=== PATIENT | female | born 1955 | race Caucasian/White ===

== ENCOUNTER 2019-07-08 14:23 | Outpatient (CLI) | payer MEDICARE, SELFPAY ==
[2019-07-08 15:06] LABS: Abs Immature Grans 0.01 k/cumm (0.0-0.09); Absolute Basophil Count 0.07 k/cumm (0.0-0.2); Absolute Eosinophil Count 0.03 k/cumm (0.0-0.7); Absolute Lymphocyte Count 1.84 k/cumm (1.2-3.4); Absolute Monocyte Count 0.69 k/cumm (0.11-0.7); Absolute Neutrophil Count 3.43 k/cumm (1.2-6.7); Basophils % 1.2; Eosinophils % 0.5; HCT 40.9 % (36.0-46.0); HGB 14.5 g/dL (12.0-15.5); Immature Grans % 0.2; Lymphocytes % 30.3; Mean Corp. HGB Concentration 35.5 g/dL (32.0-36.0); Mean Corpuscular Hemoglobin 28.6 pg (27.0-33.0); Mean Corpuscular Volume 80.7 fL (80-95); Mean Platelet Volume 9.8 fL (8.0-11.0); Monocytes % 11.4; Neutrophils % 56.4; Platelet Count 434 x1000/uL (130-400); RBC 5.07 m/cumm (4.00-5.20); RBC Distribution Width 15.6 % (11.7-14.6); White Blood Cell Count 6.07 k/cumm (4.4-10.8)
[2019-07-08 15:15] LABS: Ammonia 19 umol/L (11-32)
[2019-07-08 15:20] LABS: INR 1.1 (0.9-1.1); PTT Activated 29.2 sec (21.0-31.4)
[2019-07-08 15:52] LABS: AST 787 U/L (15-37); Albumin 3.2 g/dL (3.4-5.0); Alkaline Phosphatase 215 U/L (46-116); BUN 9 mg/dL (7-18); CREATININE 0.85 mg/dL (0.55-1.02); Calcium 9.2 mg/dL (8.5-10.1); Chloride 100 mmol/L (98-107); Glucose 123 mg/dL (70-100); Potassium 4.2 mmol/L (3.5-5.1); Sodium 137 mmol/L (136-145); Total Protein 7.6 g/dL (6.4-8.2)
[2019-07-08 16:01] LABS: Bilirubin, Total 17.2 mg/dL (0.2-1.0)
[2019-07-08 16:18] LABS: ALT 2379 U/L (14-59)
[2019-07-09 12:01] LABS: Lipase 93 U/L (73-393)
[2019-07-09 12:28] LABS: Hepatitis A Antibody IgM Positive (NEGAT); Hepatitis B Core Antibody Negative (NEGAT); Hepatitis B surface Ag Negative (NEGAT); Hepatitis C Ab w Rflx HCV PCR Negative (NEGAT)
== END 2019-07-08 14:43 ==
PROVIDERS: PCP Nurse Practitioner Family; Visit Provider Nurse Practitioner Family
DX: R42 Dizziness and giddiness (principal); R06.02 Shortness of breath; R17 Unspecified jaundice; Z11.59 Encounter for screening for other viral diseases
CPT/HCPCS: 36415; 80053; 83690; 86704; 86709; 86803; 87340; 82140; 84443; 85025; 85610; 85730

== ENCOUNTER 2019-07-08 14:49 | Outpatient (REF) | payer MEDICARE, SELFPAY | END 2019-07-08 15:09 | LOC: NCHCN 14:49 | PROVIDERS: PCP Nurse Practitioner Family; Visit Provider Nurse Practitioner Family | DX: R82.79 Other abnormal findings on microbiological examination of urine (principal); R17 Unspecified jaundice | CPT/HCPCS: 87077; 87086; 87186 ==

== ENCOUNTER 2019-07-10 00:34 | Outpatient (CLI) | payer MEDICARE, SELFPAY ==
--- NOTE | 2019-07-10 09:00 | DI.US_ITS ---
EXAM: US ABDOMEN CLINICAL HISTORY: JAUNDICE, R17, SHORTNESS OF BREATH, R06.02,DIZZINESS, R42, hepatitis A TECHNIQUE: Ultrasound performed using standard protocol. COMPARISON: No exams were available for comparison FINDINGS: The aorta and vena cava are normal. The liver is normal. The portal vein is intact. There is no ev idence of a Workman's sign. The gallbladder wall is thickened and edematous measuring up to 8.3 mm. N o stones are seen. There is no evidence of biliary dilatation. The pancreas is echogenic and has a lumpy texture. The spleen is normal. The kidneys are normal. There is no evidence of abdominal free fluid. IMPRESSION: An edematous and thickened gallbladder wall is identified measuring up to 8.3 mm in diameter. There a re no stones or evidence of dilatation. No pericholecystic fluid is identified. The liver and spleen appear normal.
== END 2019-07-10 00:54 ==
PROVIDERS: PCP Nurse Practitioner Family; Visit Provider Nurse Practitioner Family
DX: R17 Unspecified jaundice (principal); K82.8 Other specified diseases of gallbladder; R06.02 Shortness of breath; R42 Dizziness and giddiness; B15.9 Hepatitis A without hepatic coma
CPT/HCPCS: 36415; 76700; 82728

== ENCOUNTER 2019-08-08 02:17 | Outpatient (CLI) | payer MEDICARE, SELFPAY ==
--- NOTE | 2019-08-08 07:56 | DI.MAMMO_ITS ---
EXAM: MG MAMMO SCREENING CLINICAL HISTORY: SCREENING, TECHNIQUE: Bilateral full field digital CC and MLO mammographic images were obtained with 3D tomosyn thesis and utilizing computer aided detection (CAD). COMPARISON: Available for comparison. FINDINGS: Masses/Architectural Distortion: None seen. Microcalcifications: No suspicious pleomorphic-type are seen. Skin Thickening/Nipple Retraction: None. IMPRESSION: 1. No significant interval change with no specific features of malignancy noted. 2. Unless there is more urgent need, screening mammography is recommended, as per [employer] guidelines. ACR BI-RAD Category- 1 Negative Breast Density - Category B - Scattered areas of fibroglandular density A negative radiographic report should not delay biopsy if a dominant or clinically suspicious mass is present. Up to ten percent of cancers are not identified on mammography. A negative report may reinforce clinical impression. Adenosis and dense breasts may obscure an underlying neoplasm. False positive reports average 6 to 10%. Patient will receive a letter notifying them of these results.
== END 2019-08-08 02:37 ==
PROVIDERS: PCP Nurse Practitioner Family; Visit Provider Nurse Practitioner Family
DX: Z12.31 Encounter for screening mammogram for malignant neoplasm of breast (principal)
CPT/HCPCS: 77063; 77067

== ENCOUNTER 2019-08-08 10:46 | Outpatient (REF) | payer MEDICARE, SELFPAY ==
[2019-08-08 22:11] LABS: ALT 685 U/L (14-59); AST 341 U/L (15-37); Albumin 3.9 g/dL (3.4-5.0); Alkaline Phosphatase 126 U/L (46-116); BUN 17 mg/dL (7-18); Bilirubin, Total 1.2 mg/dL (0.2-1.0); CREATININE 0.74 mg/dL (0.55-1.02); Calcium 9.3 mg/dL (8.5-10.1); Chloride 104 mmol/L (98-107); Glucose 96 mg/dL (74-106); Potassium 4.5 mmol/L (3.5-5.1); Sodium 139 mmol/L (136-145); Total Protein 8.2 g/dL (6.4-8.2)
== END 2019-08-08 11:06 ==
LOC: NCHCN 10:46
PROVIDERS: PCP Nurse Practitioner Family; Visit Provider Nurse Practitioner Family
DX: B15.9 Hepatitis A without hepatic coma (principal)
CPT/HCPCS: 80053

== ENCOUNTER 2021-04-09 07:26 | Day surgery (SDC) | payer MEDICARE, MEDICAID, SELFPAY ==
[2021-04-09 07:42] VITALS: BP 172/84; PULSE 69; RESP 16; TEMP 36.3; O2SAT 99
[2021-04-09] MEDS: Tropicam./Phenyleph. (1/2.5%) 5 ML BTL OD ×3 (07:46→07:59)
--- NOTE | 2021-04-09 08:47 | ANES.PREOP_ITS ---
General Info Date of Service Date Performed: 04/09/21 Height: 5 ft 2 in Weight: 80.8 kg Body Mass Index (BMI): 32.5 Surgical Procedure: Operation Date: 04/09/21 09:40 Proposed Procedures Side Surgeon p Cataract Extraction with IOL Implant Right Marshall Ballesteros MD Meds Allergies and Home Medications Allergies Allergy/AdvReac Type Severity Reaction Status Date / Time Sulfa (Sulfonamide AdvReac Intermediate Pt.states Unverified 04/09/21 07:59 Antibiotics) heart races Home Medication Medication Instructions Recorded diphenhydramine HCl 25 mg PO DAILY PRN 04/07/21 Current Visit Medications: Current Medications Generic Name Dose Route Start Last Admin Trade Name Freq PRN Reason Stop Dose Admin Acetaminophen 1,000 mg 04/09/21 06:00 Acetaminophen 500 Mg Tab PO Q4H PRN PRN Miscellaneous Medication 0 ml 04/09/21 06:00 Prednisolone 1%, Moxifloxacin 0.5%, Nepafenac 0.1% 5ml Btl OD DIRECTED DUY Miscellaneous Medication 0 ml 04/09/21 06:00 04/09/21 07:59 Tropicam./Phenyleph. (1/2.5%) 5 Ml Btl OD 1 drp DIRECTED DUY Administration Tetracaine HCl 0 ml 04/09/21 06:00 Tetracaine 0.5% 4 Ml Btl OD DIRECTED DUY PFSH Active Problems Active Problems: Problem Status Onset Code Posterior subcapsular age-related cataract, right eye H25.041 Cortical cataract of right eye H26.9 Nuclear sclerotic cataract of right eye H25.11 Medical History Medical History Cataract Dizziness Hepatitis A Jaundice SOB (shortness of breath) Ulnar neuropathy Vaginal dryness Tobacco Smoking/Tobacco Use Status: Never Alcohol Alcohol Intake: never Substance Use Substance use type: does not use Vital Signs and Lab Results Vital Signs Most Recent Vital Signs in EMR: Most Recent Vital Signs Temp Pulse Resp BP Pulse Ox 36.3 C L 69 16 172/84 H 99 04/09/21 07:42 04/09/21 07:42 04/09/21 07:42 04/09/21 07:42 04/09/21 07:42 Lab Results Blood Type / Crossmatch: No Data to Display Complete Blood Count: No Data to Display Complete Metabolic Panel: No Data to Display Liver Function Panel: No Data to Display Coagulation Panel: No Data to Display Cardiac Panel: No Data to Display Arterial Blood Gas: No Data to Display Venous Blood Gas: No Data to Display Pancreas Panel: No Data to Display Thyroid Panel: No Data to Display Infectious Disease: No Data to Display Blood Cultures: No Data to Display Toxicology Panel: 2 No Data to Display Anesthesia Assessment and Plan Anesthesia History Personal History: No History of General Anesthesia Family History: Other (Mother had Palpitations) Exercise Tolerance Exercise Tolerance: Metabolic Equivalents>4 Pertinent Negatives Pertinent Negatives: No Symptoms of GERD, No Major Cardiovascular Symptoms or Complaints, No Major Pulmonary Symptoms or Complaints and No History of CVA/TIA Cardiac & Pulmonary Exam Cardiac Exam: Normal S1/S2 Heart Sounds Pulmonary Exam: Clear Bilateral Breath Sounds Airway Exam Known Difficult Airway: No Mallampati Class: 1 Mouth Opening: Normal (> 3cm) Thyromental Distance: Greater than 3 cm Neck Range of Motion: Full ROM Neck Circumference: Normal Teeth Condition: Normal Dentition ASA Classification ASA Score: ASA 2 Emergency Case?: No NPO Status NPO Status: NPO Clears >2 hours, Solids >8 hours Anesthesia Plan Resuscitation Status: Full Code Anesthesia Technique: MAC Anesthesia Airway Planned: Natural Airway Monitors Used: Standard Monitors
[2021-04-09 08:49] VITALS: BMI 32.5
[2021-04-09] MEDS: Balanced Salt Soln.-PLUS 500 ML BAG (09:12)
[2021-04-09] MEDS: Tetracaine 0.5% 4 ML BTL OD (09:12)
[2021-04-09] MEDS: Lidocaine 1% Pres-Free 5 ML VIAL (09:13)
[2021-04-09] MEDS: Duovisc Viscoelastic System EACH 1 EACH (09:13)
[2021-04-09] MEDS: Lidocaine 2% Jelly 6 ML SYR (09:14)
[2021-04-09] MEDS: Povidone-Iodine Ophth 30 ML BTL (09:15)
[2021-04-09 09:36] VITALS: BP 138/77; PULSE 63; RESP 16; TEMP 36.7; O2SAT 97
--- NOTE | 2021-04-09 09:50 | W.PM.DSUDISC ---
Discharge Plan Disposition Patient Disposition: HOME Condition: Good Discharge Details Attending Provider: Marshall Ballesteros Primary Care Provider: Sofi Berman Home Meds and New Rx's Prescriptions: No Action diphenhydramine HCl 25 mg Tablet 25 mg PO DAILY PRNRF: 0 Discharge Instructions Stand Alone Forms: Post-op Topical Cataract, Idris Esquivel (DSU) Discharge Orders Discharge Orders: Discharge Order (Routine); Ordered 04/09/21 Ordered By: Marshall Ballesteros DS: Diagnosis Discharge Diagnosis (1) Posterior subcapsular age-related cataract, right eye: Status: Resolved (2) Cortical cataract of right eye: Status: Resolved (3) Nuclear sclerotic cataract of right eye: Status: Resolved
--- NOTE | 2021-04-09 09:51 | W.PM.OP ---
Date of service: 04/09/21 Time of Service: 09:52 Operative Note Operative Note DATE OF PROCEDURE: 04/09/21 PRE-OP DIAGNOSIS: Nuclear/cortical/posterior subcapsular cataract, right eye POST-OP DIAGNOSIS: same PROCEDURE: Cataract extraction using phacoemulsification with intraocular lens implant, right eye SURGEON: Marshall Ballesteros ANESTHESIA TYPE: Local By Surgeon and MAC Refer to Anesthesia Record ESTIMATED BLOOD LOSS: 0 PATHOLOGY: none sent COMPLICATIONS: None Patient was transported to: same day Patient's condition: stable Implants: Jeremi & Jeremi/HUGO Tecnis [id number] Indications: Progressive visual loss due to cataract, right eye Procedure Description: CATARACT SURGERY OPERATIVE REPORT PREOPERATIVE DIAGNOSIS: 1. Nuclear/cortical/posterior subcapsular cataract, right eye POSTOPERATIVE DIAGNOSIS: Same OPERATION: 1. Cataract extraction using phacoemulsification with posterior chamber intraocular lens implant, right eye. IOL: IOL Coding Technician/Model: Jeremi [employer] Jeremi / HUGO Tecnis [id number] IOL Power: + 13.5 diopters IOL Serial Number: [id number] Optic Diameter: 6.0mm Haptic/Overall Diameter: 13.0mm PHACO INFO: Ovidio Previstarurion Vision System with OZil and Active Fluidics Cumulative Dispersed Energy (CDE): 17.74 seconds SURGEON: Marshall Ballesteros MD, MIR ANESTHESIA: Monitored Anesthesia Care (MAC), with local sub-tenon's anesthetic infiltration COMPLICATIONS: None SPECIMENS: None INDICATIONS FOR PROCEDURE: The patient is a 65-year-old lady with history of myopia who has developed a significant nuclear/cortical/posterior subcapsular cataract in the right eye. The option of cataract surgery was offered to the patient and she felt she was symptomatic enough that she wished to proceed. PROCEDURE: The correct surgical eye was identified and marked as the right eye and the pupil was dilated in the preoperative area using mydriatics and cycloplegics. The dilated pupil size was 7.0 mm. She elected to proceed without oral sedation. The patient was brought to the operating room where cardiopulmonary monitoring was instituted and surgical time-out was performed, confirming the correct operative eye and IOL power. Topical anesthesia was administered and ophthalmic povidone-iodine 5% was instilled into the conjunctival fornices. Lidocaine gel was applied to the cornea and the nneka-ocular area was prepped with Betadine 10% solution and draped in the usual sterile fashion for intraocular surgery, including an aperture drape. A Tegaderm transparent film dressing was cut in half and used to cover the lashes and lid margins. Care was taken to sequester the lashes and lid margins under the Tegaderm dressing. A lid speculum was placed between the lids of the operative eye and the Carole-Shimon operating microscope was maneuvered into position. Magali scissors were then used to make a conjunctival buttonhole approximately 6mm posterior to the limbus in the inferonasal quadrant. Blunt dissection was carried out to expose bare sclera, and a blunt-tipped sub-tenon?s anesthesia cannula was introduced and passed posteriorly along the globe where non-preserved plain lidocaine was injected into posterior sub-Tenon?s space. A sideport knife was used to make a paracentesis port inferotemporally. Intraocular phenylephrine/lidocaine was injected into the anterior chamber. The anterior chamber was filled with viscoelastic. A 2.4mm keratome knife was used to create a half-thickness groove at the limbus and then to construct a three-plane near-clear corneal tunnel extending 2.0mm into clear cornea superiortemporally. A flap was raised on the anterior capsule and capsulorhexis forceps were used to complete a continuous curvilinear capsulorhexis of 5.0 mm. The anterior chamber was quite deep with a thin capsule. Balanced salt solution was then used to perform cortical cleaving hydrodissection and nuclear hydrodelineation until the lens could be freely rotated within the capsular bag. The lens nucleus was then disassembled and removed within the capsular bag and iris plane using phacoemulsification. Residual cortical material was removed using the I/A handpiece. The posterior capsule was carefully polished to remove as much residual lens epithelial cells as safely possible. The capsular bag was then inflated and the anterior chamber deepened with viscoelastic. The lens implant described above was inserted into the capsular bag using the HUGO [place] Ira Injector. A Kuglen hook was used to dial the IOL into position. Residual viscoelastic was then removed first from posterior to the IOL, then from the anterior chamber using the I/A handpiece. The lens implant was noted to center nicely within the capsular bag. The incisions were stromally hydrated, and the anterior chamber was reformed using BSS. Then 0.5cc of moxifloxacin 1.0mg/ml were injected into the capsular bag and anterior chamber. The incisions were checked with a Weck spear and found to be secure. Several drops of ophthalmic povidone-iodine 5% were then applied to the eye followed by two drops of Imprimis combination prednisolone/moxifloxacin/nepafenac solution. The drapes were removed and a clear plastic protective eye shield was placed over the eye. The patient was then returned to Same Day Surgery in stable condition.
--- NOTE | 2021-04-09 14:33 | W.ANESPOSTOP ---
Postoperative Evaluation Date, Time and Location Date Performed: 04/09/21 Time Performed: 14:33 Patient Location: Day Surgery Unit Vital Signs Most Recent Imported Vital Signs: Most Recent Vital Signs Temp Pulse Resp BP Pulse Ox 36.7 C 63 16 138/77 97 04/09/21 09:36 04/09/21 09:36 04/09/21 09:36 04/09/21 09:36 04/09/21 09:36 Most Recent Manually Entered Vital Signs: Adult Blood Pressure: 148/72 Heart Rate: 66 Respirations: 12 Oxygen Saturation (%): 99 Temperature (C): 36.4 C Pain Score (0-10 Scale): 0 Pain Score Most Recent Pain Score: Most Recent Pain Score Pain Level 0 04/09/21 09:36 Assessment Mental Status: Awake (Alert & Oriented to Patient Baseline) Airway and Respiratory Function: Patent airway with normal (patient baseline) respiratory exam Cardiovascular Function: Hemodynamically Stable Hydration Status: Adequately Hydrated Nausea & Vomiting: No Nausea or Vomiting Pain: Pt. Denies Any Pain Peripheral Nerve Block: Patient did not receive a nerve block
[2021-04-09 14:35] VITALS: BP 148/72; PULSE 66; RESP 12; TEMPC 36.4; O2SAT 99
== END 2021-04-09 09:50 | disposition home or self-care (01) ==
PROVIDERS: PCP Nurse Practitioner Family; Visit Provider Ophthalmology
PROC: (CPT 66984; principal; 2021-04-09 09:30)
DX: H25.041 Posterior subcapsular polar age-related cataract, right eye (principal)
CPT/HCPCS: 66984; V2632

== ENCOUNTER → 2023-08-16 02:54 | Outpatient (CLI) | payer MEDICARE, MEDICAID, SELFPAY ==
--- NOTE | 2023-08-16 | DI.DEXA_ITS ---
Exam(s) XR DEXA BONE DENSITY W/WO BECKY EXAM: XR DEXA BONE DENSITY W/WO BECKY CLINICAL HISTORY: SCREENING FOR OSTEOPOROSIS IN POSTMENOPAUSAL WOMAN,Z78.0 TECHNIQUE: COMPARISON: No exams were available for comparison FINDINGS: Lateral Spine Image: Unremarkable. No compression deformities identified. Left hip: Total T-Score: -1.3 Total Z-Score: 0.2 T- and Z-scores: Total findings are consistent with osteopenia. There is evidence of osteoporosis in the femoral neck with a T-score of -2.5. Lumbar Spine: Total T-Score: -0.7 Total Z-Score: 1.3 T- and Z-scores: Within normal limits. IMPRESSION: Osteoporosis seen in the femoral neck.
--- NOTE | 2023-08-16 14:05 | DI.MAMMO_ITS ---
Exam(s) MAMMO SCREENING EXAM: MAMMO SCREENING CLINICAL HISTORY: SCREENING, Z12.31 TECHNIQUE: Bilateral full field digital CC and MLO mammographic images were obtained with 3D tomosyn thesis and utilizing computer aided detection (CAD). COMPARISON: Available for comparison. FINDINGS: Masses/Architectural Distortion: None seen. Microcalcifications: No suspicious pleomorphic-type are seen. Skin Thickening/Nipple Retraction: None. IMPRESSION: 1. No significant interval change with no specific features of malignancy noted. 2. Unless there is more urgent need, screening mammography is recommended, as per [employer] guidelines. BI-RADS Category 1 - Negative Breast Density - Category B - Scattered areas of fibroglandular density Breast density category C or D implies that the patient has dense breast tissue. Dense breast tissue is very common and is not abnormal but dense breast tissue can make it harder to find cancer on a ma mmogram. Also, dense breast tissue may increase their breast cancer risk. This information about the result of the mammogram report was provided to the patient to raise their awareness. Use this report when you speak with the patient about their risks for breast cancer, which includes their family hist ory. At that time, you may recommend for more screening tests (Ultrasound or MRI) as they might be us eful based on their risk. A negative radiographic report should not delay biopsy if a dominant or clinically suspicious mass is present. Up to ten percent of cancers are not identified on mammography. A negative report may reinforce clinical impression. Adenosis and dense breasts may obscure an underlying neoplasm. False positive reports average 6 to 10%. Patient will receive a letter notifying them of these results.
== END ==
PROVIDERS: PCP Nurse Practitioner Family; Visit Provider Nurse Practitioner Family
DX: Z78.0 Asymptomatic menopausal state (principal); Z12.31 Encounter for screening mammogram for malignant neoplasm of breast; Z13.820 Encounter for screening for osteoporosis; M81.0 Age-related osteoporosis without current pathological fracture
CPT/HCPCS: 77063; 77067; 77080

== ENCOUNTER → 2024-07-18 08:23 | Outpatient (BNVA) | payer MEDICARE, MEDICAID, SELFPAY | PROVIDERS: PCP Nurse Practitioner Family; Referring Provider Nurse Practitioner Family; Visit Provider Physical Therapy Assistant | DX: Z12.11 Encounter for screening for malignant neoplasm of colon (principal); R19.5 Other fecal abnormalities ==

== ENCOUNTER 2024-08-02 09:59 | Day surgery (SDC) | payer MEDICARE, SELFPAY ==
--- NOTE | 2024-08-01 18:41 | W.PM.DSUDISC ---
Date of service: 08/02/24 Time of Service: 11:48 Discharge Plan Disposition Patient Disposition: Home Condition: Good Discharge Details Reason For Visit: screening colonsocopy Attending Provider: Chad Donahue Primary Care Provider: Sofi Berman Home Meds and New Rx's Prescriptions: Continued epinephrine 0.3 mg/0.3 mL auto-injector 0.3 mg IM ONCE Rx Instructions: as a single dose; may repeat once diphenhydramine HCl 25 mg Tablet 25 mg PO DAILY PRN Discontinued bisacodyl [Dulcolax (bisacodyl)] 5 mg tablet,delayed release (DR/EC) 5 mg PO ONCE Qty: 4 0RF Rx Instructions: Take per colonoscopy instructions provided by ordering providers office polyethylene glycol 3350 17 gram/dose powder 17 g PO ONCE Qty: 238 0RF Rx Instructions: Take per colonoscopy instructions provided by ordering providers office Discharge Instructions Instructions: Colon polyps, Diverticulosis Additional Instructions: Mónica, is a pleasure meeting you today, and I hope you are comfortable during the colonoscopy. Everything went very smoothly. I did find and removed 2 polyps today. 1 of these is medium sized, and the other was small. To the naked eye, there are no worrisome features, but I will send these off for testing since polyps, and different varieties, and that information is used to guide the timing of the next colonoscopy. Incidentally, he also have quite a bit of diverticulosis. Diverticula are weak spots in the muscular part of the colon wall. These typically accumulate as we get older. This causes the inside lining to pooch or pocket outwards. The individual pockets are called diverticula, and the condition of having them is known as diverticulosis. Sometimes patients develop symptoms, which is typically experienced as sharp pain on the left lower side of the abdomen. Patients are usually quite sick with this and is often times treated with antibiotics, during those flareups, we refer to it as diverticulitis. Hopefully years will never bother you. I think incorporating more dietary fiber, and focusing on staying well-hydrated and avoiding symptoms of constipation are probably the best way to take care of this. Have attached a little bit of information here about diverticulosis as well as colorectal polyps. As I mentioned, once the office has the results from the polyp report, we will be in touch with other recommendations. 1. If tolerated, consume a soft, low fiber diet for 1-2 days. 2[address] Do not drive, drink alcohol, operate machinery, make critical decisions, or do activities that require coordination or balance for 24 hours. 3. Because air was put into your colon during the procedure, expelling air from your rectum (passing gas or farting) is normal. 4. You may not have a bowel movement for 1-3 days because of the colonoscopy prep. This is normal. 5. Go directly to the emergency room if you notice any of the following: Develop chills (warm to touch), or if you have a thermometer and your temperature is above 101 Difficulty breathing or difficultly swallowing Persistent vomiting Severe abdominal pain, other than gas cramps Severe chest pain Black, tarry stools Any bleeding ? exceeding one tablespoon 6. Call your physician if the site where your intravenous was started becomes red, swollen, painful, and warm to touch. 7. Your physician has reviewed your pre-procedure medications. Please continue to take those medications as previously ordered. You will be given specific information/education regarding any changes to your medications before leaving. Stand Alone Forms: Anesthesia Discharge Inst., Idris Esquivel (DSU) Activity:: Activity as Tolerated Diet:: As Tolerated Discharge Orders Discharge Orders: Discharge Order (Routine); Ordered 08/01/24 Ordered By: Chad Donahue DS: Diagnosis Discharge Diagnosis (1) Encounter for screening colonoscopy: Status: Acute Asessment and Plan: Follow-up on polypectomy results
--- NOTE | 2024-08-01 18:42 | W.COLOREPORT ---
Date of service: 08/02/24 Time of Service: 11:51 Colonoscopy Report Date of procedure: 08/02/24 Pre-op diagnosis general: screening colonoscopy Post-op diagnosis procedure note: other (Colon polyps, diverticulosis) Procedure: colonoscopy with polypectomy Surgeon: Chad Donahue Anesthesia Type: General:No Airway Estimated blood loss (mL): 5 Pathology: other (0.5 cm pedunculated polyp in the ascending colon, 0.25 cm flat polyp at 25 cm) Complications: None Disposition: same day Indications: Mónica is a 69 year old woman who had a positive fecal DNA test. She needs a follow up screening colonoscopy Prep: Miralax/Dulcolax Procedure Start Time: :22 Procedure End Time: 11:43 Retraction Time: 18 Findings: Sigmoid diverticulosis, 0.5 cm pedunculated polyp in the ascending colon, 0.25 cm flat polyp at 25 cm Procedure Description: After the induction of anesthesia, and with the patient in left lateral decubitus position, I began by performing an external anorectal exam.? Perineum and skin were normal, as was the anal verge.? There was no evidence of external hemorrhoids.? Next, I performed a digital rectal exam.? I did not appreciate any abnormal findings.? Next, I advanced a colonoscope into the rectal vault.? I performed retroflexion.? I this appeared normal.? Using insufflation, I then advanced the colonoscope beyond the rectal folds and into the sigmoid colon before advancing towards the cecum.? There is extensive sigmoid diverticulosis.? The scope was noted to be in the cecum by identification of the ileocecal valve and appendiceal orifice.? I then began withdrawing the colonoscope using repeated irrigation as necessary for full evaluation of the colonic mucosa. Within the ascending colon, just a few centimeters distal to the ileocecal valve was a 0.5 cm pedunculated polyp. This was removed in piecemeal with cold snare polypectomy. All specimens were retrieved. Resection was complete. There was minimal bleeding from the site. I found another polyp around 25 cm from the anal verge. This was more flat. This was removed with cold forcep polypectomy with minimal bleeding. Once the scope was withdrawn to the level of the rectum, great care was taken to examine portions of the rectal folds.? Finally, the scope was withdrawn and the patient was brought to the same-day surgery recovery unit as the anesthetic wore off. ?The findings and instructions were shared with the patient prior to discharge. Junction Bowel Prep Junction Bowel Prep Right Colon: 2 Left Colon: 1 Transverse Colon: 3 Total Score: 6
[2024-08-02 10:05] VITALS: BP 152/82; PULSE 73; RESP 16; TEMP 36.2; O2SAT 99
--- NOTE | 2024-08-02 10:34 | W.ANESPRE ---
General Info Date of Service Date Performed: 08/02/24 Height: 5 ft 2 in Weight: 90.265 kg Body Mass Index (BMI): 36.3 Surgical Procedure: Operation Date: 08/02/24 11:20 Proposed Procedure Side Surgeon p Colonoscopy Chad Donahue MD Meds Allergies and Home Medications Allergies Allergy/AdvReac Type Severity Reaction Status Date / Time buckwheat Allergy Severe Anaphylaxis Verified 08/02/24 10:14 hazelnut Allergy Severe Anaphylaxis Verified 08/02/24 10:14 macadamia nut oil Allergy Severe Anaphylaxis Verified 08/02/24 10:14 Sulfa (Sulfonamide AdvReac Intermediate Pt.states Verified 08/02/24 10:14 Antibiotics) heart races Home Medication ?Medication ?Instructions ?Recorded diphenhydramine HCl 25 mg tablet 25 mg PO DAILY PRN 04/07/21 epinephrine 0.3 mg/0.3 mL 0.3 mg IM ONCE 11/28/23 injection, auto-injector Current Visit Medications: Current Medications Generic Name Dose Route Start Last Admin Trade Name Freq PRN Reason Stop Dose Admin IV Miscellaneous Supplies 1 each 08/02/24 06:00 Iv Access IV 08/02/24 23:59 DIRECTED DUY Ondansetron HCl 4 mg 08/01/24 18:44 Ondansetron 4 Mg/2 Ml Vial IVP 08/31/24 18:43 Q4H PRN PRN Nausea / Vomiting Sodium Chloride 0 ml 08/02/24 06:00 Normal Saline Flush 10 Ml Syr IV 08/02/24 23:59 PRN PRN Sodium Chloride 0 ml 08/02/24 06:00 Normal Saline 10 Ml Vial IJ 08/02/24 23:59 DIRECTED PRN Sterile Water 0 ml 08/02/24 06:00 Water,Injection,Sterile 10 Ml Vial IJ 08/02/24 23:59 DIRECTED PRN PFSH Active Problems Active Problems: Problem Status Onset Code Encounter for screening colonoscopy Acute Z12.11 Posterior subcapsular age-related cataract, right eye Resolved H25.041 Cortical cataract of right eye Resolved H26.9 Nuclear sclerotic cataract of right eye Resolved H25.11 Medical History Medical History (Updated 08/01/24 @ 18:41 by Chad Donahue MD) Positive colorectal cancer screening using Cologuard test (~10/2023) Osteoporosis [place]'s nodes of both hands Intertrigo Cataract Ulnar neuropathy Vaginal dryness Jaundice SOB (shortness of breath) Dizziness Hepatitis A Tobacco Smoking/Tobacco Use Status: Never Alcohol Alcohol Intake: never Substance Use Substance use type: does not use Vital Signs and Lab Results Vital Signs Most Recent Vital Signs in EMR: Most Recent Vital Signs Temp Pulse Resp BP Pulse Ox 36.2 C L 73 16 152/82 H 99 08/02/24 10:05 08/02/24 10:05 08/02/24 10:05 08/02/24 10:05 08/02/24 10:05 Lab Results Blood Type / Crossmatch: No Data to Display Complete Blood Count: No Data to Display Complete Metabolic Panel: No Data to Display Liver Function Panel: No Data to Display Coagulation Panel: No Data to Display Cardiac Panel: No Data to Display Arterial Blood Gas: No Data to Display Venous Blood Gas: No Data to Display Pancreas Panel: No Data to Display Thyroid Panel: No Data to Display Infectious Disease: No Data to Display Blood Cultures: No Data to Display Toxicology Panel: No Data to Display Anesthesia Assessment and Plan Anesthesia History Personal History: No History of General Anesthesia Family History: No Family History of Anesthesia Complications Exercise Tolerance Exercise Tolerance: Metabolic Equivalents>4 Pertinent Negatives Pertinent Negatives: No Symptoms of GERD, No Major Cardiovascular Symptoms or Complaints, No Major Pulmonary Symptoms or Complaints and No History of CVA/TIA Cardiac & Pulmonary Exam Cardiac Exam: Normal S1/S2 Heart Sounds Pulmonary Exam: Clear Bilateral Breath Sounds Implantable Cardiac Device Does patient have a Pacemaker or an ICD?: No Airway Exam Known Difficult Airway: No Mallampati Class: 1 Mouth Opening: Normal (> 3cm) Thyromental Distance: Greater than 3 cm Neck Range of Motion: Full ROM Neck Circumference: Normal Teeth Condition: Normal Dentition ASA Classification ASA Score: ASA 2 Emergency Case?: No NPO Status NPO Status: NPO Clears >2 hours, Solids >8 hours Anesthesia Plan Resuscitation Status: Full Code Anesthesia Technique: General Anesthesia Airway Planned: Natural Airway Monitors Used: Standard Monitors Preoperative Comments:: 69 y/o female with history of cataracts presents for colonoscopy screening. She had a recent (+) Fecal DNA test result. She denies a family history of colon cancer.
[2024-08-02] MEDS: Normal Saline Flush 10 ML SYR IV (10:37)
[2024-08-02 11:02] VITALS: BMI 36.3
--- NOTE | 2024-08-02 11:33 | BOWEL_PTH ---
PATIENT: Mónica Huertas LOC: [facility] U#:[id number] AGE/SX: 69/F ROOM: RE08/02/[address]: Chad Donahue MD : 1955 BED: DIS: 08/02/2024 SPEC #: [id number] RECD: 08/02/24 13:16 STATUS: ISABELLA REQ #: [id number] LAURIE: 08/02/24 11:[address]: Chad Donahue DEPT: Surgical Specimen RECD BY: Zohreh Rowe ENTERED: 08/02/24 13:17 SP TYPE: Bowel OTHR DR: Sofi Berman Tissues: 1 - BIOPSY BOWEL 2 - BIOPSY BOWEL Procedures: GROSS AND MICRO LEVEL 4 Comments: [id number]
[2024-08-02 11:46] VITALS: BP 103/59; PULSE 71; RESP 16; TEMP 35.9; O2SAT 97
--- NOTE | 2024-08-02 11:59 | W.ANESPOSTOP ---
Postoperative Evaluation Date, Time and Location Date Performed: 08/02/24 Time Performed: 11:48 Patient Location: Day Surgery Unit Vital Signs Most Recent Imported Vital Signs: Most Recent Vital Signs Temp Pulse Resp BP Pulse Ox 35.9 C L 71 16 103/59 L 97 08/02/24 11:46 08/02/24 11:46 08/02/24 11:46 08/02/24 11:46 08/02/24 11:46 Pain Score Most Recent Pain Score: Most Recent Pain Score Pain Level 0 08/02/24 11:46 Assessment Mental Status: Awake (Alert & Oriented to Patient Baseline) Airway and Respiratory Function: Patent airway with normal (patient baseline) respiratory exam Cardiovascular Function: Hemodynamically Stable Hydration Status: Adequately Hydrated Nausea & Vomiting: No Nausea or Vomiting Pain: Pt. Denies Any Pain Peripheral Nerve Block: Patient did not receive a nerve block
[2024-08-02 12:10] VITALS: BP 122/73; PULSE 61; RESP 16; TEMP 36.3; O2SAT 94
== END 2024-08-02 12:29 | disposition home or self-care (01) ==
LOC: SUR 10:00
PROVIDERS: PCP Nurse Practitioner Family; Visit Provider Surgery
PROC: 0DJD8ZZ Inspection of Lower Intestinal Tract, Via Natural or Artificial Opening Endoscopic (ICD-10-PCS; CPT 45378; principal; 2024-08-02 11:15)
DX: Z12.11 Encounter for screening for malignant neoplasm of colon (principal); R19.5 Other fecal abnormalities; D12.2 Benign neoplasm of ascending colon; K57.30 Diverticulosis of large intestine without perforation or abscess without bleeding
CPT/HCPCS: 45385; 45380; 88305; J2704